=== PATIENT | female | born 1995 | race Caucasian/White ===

== ENCOUNTER 2019-05-03 17:38 | Emergency (ER) | payer OTHER ==
--- NOTE | 2019-05-03 17:44 | ED.ADGEN ---
Past History Past Medical History: Bronchitis Smoking: Cigarettes Additional Alcohol Information: Vaping Adult General Chief Complaint Chief Complaint "My chest been heavy feeling for past week.. but last two days... a lot of coughing, shortness of breath.. some wheezing."... HPI HPI Patient is a 23 year old female who presents with above hx and complaints shortness of breath., Wheezing and chest heaviness. Patient denies any specific ill contacts. No recent travel. No history immunosuppression. Patient does smoke an occasional vapes. No history of cardiac disorders. Patient does say he feels like she is tachycardic. Pt has no history of blood clots or family history coagulopathy Review of Systems Review of Systems Constitutional: Denies fever or chills [] Eyes: Denies change in visual acuity, redness, or eye pain [] HENT: Denies nasal congestion or sore throat [] Respiratory: Complains of cough or shortness of breath [] Cardiovascular: No additional information not addressed in HPI [] GI: Denies abdominal pain, nausea, vomiting, bloody stools or diarrhea [] : Denies dysuria or hematuria [] Musculoskeletal: Denies back pain or joint pain [] Integument: Denies rash or skin lesions [] Neurologic: Denies headache, focal weakness or sensory changes [] Endocrine: Denies polyuria or polydipsia [] All other systems were reviewed and found to be within normal limits, except as documented in this note. Family History Family History Noncontributory Current Medications Current Medications Current Medications Medications (Trade) Dose Ordered Sig/Shakira Start Time Stop Time Status Last Admin Dose Admin Albuterol Sulfate (Ventolin Hfa Inhaler) 2 puff 1X ONCE 05/03/19 18:00 05/03/19 18:10 DC 05/03/19 18:04 2 PUFF Azithromycin (Zithromax) 500 mg 1X ONCE 05/03/19 21:00 05/03/19 21:01 DC 05/03/19 21:11 500 MG Prednisone (Prednisone) 50 mg 1X ONCE 05/03/19 18:15 05/03/19 18:16 DC 05/03/19 19:24 50 MG Allergies Allergies Allergies Coded Allergies Type Severity Reaction Last Updated Verified No Known Drug Allergies 05/03/19 No Physical Exam Physical Exam Constitutional: Moderate acute distress, non-toxic appearance. [] HENT: Normocephalic, atraumatic, bilateral external ears normal, oropharynx moist, no oral exudates, nose: Turbinates and rhinorrhea Eyes: PERRLA, EOMI, conjunctiva normal, no discharge. [] Neck: Normal range of motion, no tenderness, supple, no stridor. [] Cardiovascular. tachycardia:Heart rate regular rhythm, no murmur [] Lungs & Thorax: Bilateral breath sounds equal apexes scattered wheezes on auscultation [] Abdomen: Bowel sounds normal, soft, no tenderness, no masses, no pulsatile masses. [] Skin: Warm, dry, no erythema, no rash. [] Back: No tenderness, no CVA tenderness. [] Extremities: No tenderness, no cyanosis, no clubbing, ROM intact, no edema. [] Neurologic: Alert and oriented X 3, normal motor function, normal sensory function, no focal deficits noted. [] Psychologic: Affect normal, judgement normal, mood normal. [] Current Patient Data Vital Signs Vital Signs Date Time Temp Pulse Resp B/P (MAP) Pulse Ox O2 Delivery O2 Flow Rate FiO2 05/03/19 18:08 106 22 97 Room Air Lab Results Laboratory Tests Test 05/03/19 18:52 05/03/19 19:06 05/03/19 19:47 Urine Collection Type Unknown Urine Color Yellow Urine Clarity Clear Urine pH 5.5 Urine Specific Driver 1.025 Urine Protein Neg (NEG-TRACE) Urine Glucose (UA) Neg mg/dL (NEG) Urine Ketones (Stick) Neg mg/dL (NEG) Urine Blood Neg (NEG) Urine Nitrite Neg (NEG) Urine Bilirubin Neg (NEG) Urine Urobilinogen Dipstick 0.2 mg/dL (0.2 mg/dL) Urine Leukocyte Esterase Neg (NEG) Urine RBC 0 /HPF (0-2) Urine WBC Rare /HPF (0-4) Urine Squamous Epithelial Cells Mod /LPF Urine Bacteria Mod /HPF (0-FEW) Urine Mucus Mod /LPF Urine Opiates Screen Neg (NEG) Urine Methadone Screen Neg (NEG) Urine Barbiturates Neg (NEG) Urine Phencyclidine Screen Neg (NEG) Urine Amphetamine/Methamphetamine Neg (NEG) Urine Benzodiazepines Screen Neg (NEG) Urine Cocaine Screen Neg (NEG) Urine Cannabinoids Screen Pos (NEG) Urine Ethyl Alcohol Neg (NEG) POC Urine HCG, Qualitative hcg negative (Negative) White Blood Count 11.8 x10^3/uL (4.0-11.0) H Red Blood Count 5.74 x10^6/uL (3.50-5.40) H Hemoglobin 15.3 g/dL (12.0-15.5) Hematocrit 46.9 % (36.0-47.0) Mean Corpuscular Volume 82 fL (79-100) Mean Corpuscular Hemoglobin 27 pg (25-35) Mean Corpuscular Hemoglobin Concent 33 g/dL (31-37) Red Cell Distribution Width 16.4 % (11.5-14.5) H Platelet Count 250 x10^3/uL (140-400) Neutrophils (%) (Auto) 69 % (31-73) Lymphocytes (%) (Auto) 25 % (24-48) Monocytes (%) (Auto) 5 % (0-9) Eosinophils (%) (Auto) 1 % (0-3) Basophils (%) (Auto) 1 % (0-3) Neutrophils # (Auto) 8.1 x10^3uL (1.8-7.7) H Lymphocytes # (Auto) 2.9 x10^3/uL (1.0-4.8) Monocytes # (Auto) 0.5 x10^3/uL (0.0-1.1) Eosinophils # (Auto) 0.2 x10^3/uL (0.0-0.7) Basophils # (Auto) 0.1 x10^3/uL (0.0-0.2) Prothrombin Time 9.4 SEC (9.4-11.4) Prothrombin Time INR 0.9 (0.9-1.1) Activated Partial Thromboplast Time 38 SEC (23-33) H D-Dimer (Radha) 0.40 mg/L (0.00-0.50) Sodium Level 142 mmol/L (136-145) Potassium Level 4.1 mmol/L (3.5-5.1) Chloride Level 104 mmol/L (98-107) Carbon Dioxide Level 28 mmol/L (21-32) Anion Gap 10 (6-14) Blood Urea Nitrogen 13 mg/dL (7-20) Creatinine 0.9 mg/dL (0.6-1.0) Estimated GFR (Cockcroft-Gault) 76.3 Glucose Level 86 mg/dL (70-99) Calcium Level 9.3 mg/dL (8.5-10.1) Troponin I Quantitative < 0.017 ng/mL (0-0.055) EKG EKG My interpretation EKG shows a sinus tachycardia and 103 bpm. Does have a leftward axis. No findings acute STEMI of contralateral changes[] Radiology/Procedures Radiology/Procedures [][place] [id number] IMAGING REPORT Signed PATIENT: ALONSO HIGHTOWER JACCOUNT: [id number] : 1995 LOCATION: ER AGE: 23 SEX: F EXAM STATUS: REG ER ORD. PHYSICIAN: MARIEL CARLISLE MD REASON: Dyspnea, chest pain PROCEDURE: CHEST PA & LATERAL PA and lateral chest radiographs 05/03/2019 Clinical History: Shortness of breath and chest pain. PA and lateral digital radiographs of the chest were obtained. No previous studies are available for comparison. The cardiac and mediastinal silhouettes are within normal limits in size and configuration. No pulmonary infiltrate is seen. No pleural effusion or pneumothorax is noted. The osseous structures are grossly intact. Impression: No radiographic evidence of active cardiopulmonary disease. Electronically signed by: Derek Barbour MD (05/03/2019 7:26 PM) [facility] DICTATED AND SIGNED BY: DEREK BARBOUR MD DATE: 05/03/191925 CC: MARIEL CARLISLE MD; PCP,NO ~ Course & Med Decision Making Course & Med Decision Making Pertinent Labs and Imaging studies reviewed. (See chart for details) Patient encouraged not to smoke. Patient take Zithromax 250 mg a day. Take prednisone 50 mg a day. Use MDI 2 puffs 4 times a day. Patient to avoid marijuana and tobacco and vaping. Follow-up primary care. Return if any concerns. [] Final Impression Final Impression 1. Dyspnea and wheezing[] 2. Marijuana and Tobacco use 3. Bronchitis 4. URI Dragon Disclaimer Dragon Disclaimer This electronic medical record was generated, in whole or in part, using a voice recognition dictation system. Dragon Disclaimer This chart was dictated in whole or in part using Voice Recognition software in a busy, high-work load, and often noisy Emergency Department environment. It may contain unintended and wholly unrecognized errors or omissions. MARIEL CARLISLE MD May 03, 2019 17:44
[2019-05-03] MEDS ORDERED: ALBUTEROL SULFATE 8GM INHALER. INH ONE (18:00)
[2019-05-03] MEDS ORDERED: predniSONE 10 MG TABLET PO ONE (18:15)
[2019-05-03 19:18] LABS: AMPHETAMINE/METHAMPHETAMINE NEG (NEG); BARBITURATES NEG (NEG); BENZODIAZEPINES NEG (NEG); CANNABINOIDS POS (NEG); COCAINE NEG (NEG); METHADONE NEG (NEG); OPIATES NEG (NEG); PHENCYCLIDINE NEG (NEG)
[2019-05-03 19:23] LABS: BACTERIA,URINE MOD /HPF (0-FEW); BILIRUBIN,URINE NEG (NEG); CLARITY,URINE CLEAR; COLOR,URINE YELLOW; GLUCOSE,URINE NEG (NEG); NITRITE,URINE NEG (NEG); RBC,URINE 0 /HPF (0-2); SQUAMOUS EPITHELIAL CELL,UR MOD /LPF; UROBILINOGEN,URINE 0.2 mg/dL (0.2 mg/dL); WBC,URINE RARE /HPF (0-4)
--- NOTE | 2019-05-03 19:29 | RAD ---
PA and lateral chest radiographs 05/03/2019 Clinical History: Shortness of breath and chest pain. PA and lateral digital radiographs of the chest were obtained. No previous studies are available for comparison. The cardiac and mediastinal silhouettes are within normal limits in size and configuration. No pulmonary infiltrate is seen. No pleural effusion or pneumothorax is noted. The osseous structures are grossly intact. Impression: No radiographic evidence of active cardiopulmonary disease. Electronically signed by: Derek Augustin MD (05/03/2019 7:26 PM) [facility]
[2019-05-03 19:57] LABS: BASO # 0.1 x10^3/uL (0.0-0.2); BASO % 1 % (0-3); EOS # 0.2 x10^3/uL (0.0-0.7); EOS % 1 % (0-3); HEMATOCRIT 46.9 % (36.0-47.0); HEMOGLOBIN 15.3 g/dL (12.0-15.5); LYMPH # 2.9 x10^3/uL (1.0-4.8); LYMPH % 25 % (24-48); MEAN CORPUSCULAR HEMOGLOBIN 27 pg (25-35); MEAN CORPUSCULAR HGB CONC 33 g/dL (31-37); MEAN CORPUSCULAR VOLUME 82 fL (79-100); MONO # 0.5 x10^3/uL (0.0-1.1); MONO % 5 % (0-9); NEUT # 8.1 x10^3uL (1.8-7.7); NEUT % 69 % (31-73); PLATELET COUNT 250 x10^3/uL (140-400); RED BLOOD COUNT 5.74 x10^6/uL (3.50-5.40); RED CELL DISTRIBUTION WIDTH 16.4 % (11.5-14.5); WHITE BLOOD COUNT 11.8 x10^3/uL (4.0-11.0)
[2019-05-03 20:07] LABS: CALCIUM 9.3 mg/dL (8.5-10.1); CREATININE 0.9 mg/dL (0.6-1.0); GFR 76.3; POTASSIUM 4.1 mmol/L (3.5-5.1)
[2019-05-03] MEDS ORDERED: AZIT250T PO (20:43)
[2019-05-03] MEDS ORDERED: PRED50TA PO (20:43)
[2019-05-03] MEDS ORDERED: AZITHROMYCIN 250 MG TABLET. PO ONE (21:00)
[2019-05-03 21:05] VITALS: BP 107/54
--- NOTE | 2019-05-05 12:46 | EKG ---
[address] [address] Test Date: 2019-05-03 Test Time: 17:47:52 Pat Name: ALONSO HGIHTOWER Department: Room: Gender: F Branch Or Department Chief Librarian: PEDRO : 1995 Requested By: MARIEL CARLISLE Order Number: [id number] Reading MD: Measurements Intervals [place] Rate: 103 P: 18 AR: 144 QRS: 0 QRSD: 94 T: 2 QT: 332 QTc: 437 Interpretive Statements SINUS TACHYCARDIA LEFTWARD AXIS R-S TRANSITION ZONE IN V LEADS DISPLACED TO THE LEFT NO SPECIFIC ECG ABNORMALITIES RI6.01 No previous ECG available for comparison
== END 2019-05-03 21:11 | disposition home or self-care (01) ==
LOC: ER 17:38
DX: J40 Bronchitis, not specified as acute or chronic (principal); J06.9 Acute upper respiratory infection, unspecified; F17.210 Nicotine dependence, cigarettes, uncomplicated; F12.90 Cannabis use, unspecified, uncomplicated
CPT/HCPCS: 36415; 71046; 80048; 80307; 81001; 81025; 84484; 85025; 85379; 85610; 85730; 87086; 94640; 99285; J0456; J7512; J7613

== ENCOUNTER 2021-03-15 09:22 | Emergency (ER) | payer BC, OTHER ==
[~2021-03-15] VITALS: Ht 172.7 cm; Wt 120.0 kg
[~2021-03-15 09:22] MED LIST: AZIT250T PO; PRED50TA PO
[2021-03-15 09:31] VITALS: BP 131/86
[2021-03-15] MEDS ORDERED: AMOXICILLIN/K CLAV 875/125MG TABLET. PO ONE (09:45)
[2021-03-15] MEDS ORDERED: DIPH,PERTUSS(ACELL),TET VAC/PF 0.5 ML SYRINGE. VAX IM ONE (09:45)
[2021-03-15] MEDS ORDERED: NEOMY/BACITR/POLYMYXIN OINT PACKET. TP ONE (09:45)
[2021-03-15] MEDS ORDERED: AMOX1TAB61 PO (09:48)
--- NOTE | 2021-03-15 09:48 | PHYS DOC ---
Past History Past Medical History: Bronchitis Past Surgical History: Tonsillectomy Smoking: Cigarettes Alcohol Use: None Drug Use: None General Adult EDM: Chief Complaint: FINGER INJURY HPI: HPI: Patient is a 25-year-old female coming in for cat scratch and possible bite wound to index finger of left hand. Patient states that the wound happened about 12 hours prior to arrival when she was trying to break up a cat fight on her porch. States the cat is hers and states she is "pretty sure" the cats rabies vaccination is up-to-date. States the cat has been acting normally. Tetanus not up-to-date. Review of Systems: Review of Systems: All other systems within normal limits except for as noted in the HPI Allergies: Allergies: Allergies Coded Allergies Type Severity Reaction Last Updated Verified No Known Drug Allergies 03/15/21 No Physical Exam: PE: Constitutional: Well developed, well nourished, no acute distress, non-toxic appearance. [] HENT: Normocephalic, atraumatic, bilateral external ears normal, nose normal. [] Eyes: PERRLA, conjunctiva normal, no discharge. [] Neck: No rigidity, supple, no stridor. [] Cardiovascular: Regular rate and rhythm, brisk cap refill [] Lungs & Thorax: Non labored symmetric respirations, no tachypnea or respiratory distress [] Abdomen: Soft, nondistended. Skin: Warm, dry, no erythema, no rash. Superficial 1 cm room to the palmar aspect of the left index finger surrounding erythema and edema [] Back: Unremarkable Extremities: No deformities, range of motion grossly intact, no lower extremity edema. Left index finger: Range of motion intact but somewhat limited due to swelling [] Neurologic: Alert and oriented X 3, no focal deficits noted. [] Psychologic: Affect normal, judgement normal, mood normal. [] Current Patient Data: Vital Signs: Vital Signs Date Time Temp Pulse Resp B/P (MAP) Pulse Ox O2 Delivery O2 Flow Rate FiO2 03/15/21 09:31 99.2 86 18 131/86 97 Room Air EKG: EKG: [] Radiology/Procedures: Radiology/Procedures: [] Heart Score: C/O Chest Pain: No Risk Factors: Risk Factors: DM, Current or recent (<one month) smoker, HTN, HLP, family history of CAD, obesity. Risk Scores: Score 0 - 3: 2.5% MACE over next 6 weeks - Discharge Home Score 4 - 6: 20.3% MACE over next 6 weeks - Admit for Clinical Observation Score 7 - 10: 72.7% MACE over next 6 weeks - Early Invasive Strategies Course & Med Decision Making: Course & Med Decision Making Superficial laceration that appears to have beginnings of infection. Will treat with antibiotics, first dose given in ER. Discussed risks and benefits of rabies. Patient states she believes her cats vaccines up-to-date and will be able to watch it, declines rabies vaccine. Discussed return precautions for cat scratch fever. Dragon Disclaimer: Suzeon Disclaimer: This electronic medical record was generated, in whole or in part, using a voice recognition dictation system. Departure Departure: Impression: Primary Impression: Cat bite Additional Impression: Cellulitis Disposition: HOME / SELF CARE / HOMELESS Condition: IMPROVED Referrals: ROSA CUMMINS (PCP) Patient Instructions: Wound Care, [id number] Scripts Amoxicillin/Potassium Clav (AUGMENTIN 875-125 TABLET) 1 Each Tablet 1 TAB PO BID for antibiotic for 7 Days, #14 TAB 0 Refills Prov: LISETTE HARVEY MD 03/15/21 LISETTE HARVEY MD Mar 15, 2021 09:48
== END 2021-03-15 10:08 | disposition home or self-care (01) ==
LOC: ER 09:22
DX: S60.411A Abrasion of left index finger, initial encounter (principal); L03.012 Cellulitis of left finger; F17.210 Nicotine dependence, cigarettes, uncomplicated; W55.03XA Scratched by cat, initial encounter; Y93.89 Activity, other specified; Y92.89 Other specified places as the place of occurrence of the external cause; Y99.8 Other external cause status
CPT/HCPCS: 90471; 90715; 99283